=== PATIENT | male | born 1975 | race Hispanic/Latino ===

== ENCOUNTER 2018-10-31 21:29 | Emergency (ER) | payer OTHER ==
[~2018-10-31 21:29] MED LIST: ISOVUE-370 76%-LOCM 1 ML ONE
[2018-10-31] MEDS ORDERED: Ondansetron PF 4 MG/2 ML Vial ONE (22:39)
[2018-10-31] MEDS ORDERED: Adacel (T-DAP) 0.5 ML SYRINGE ONE (22:53)
--- NOTE | 2018-10-31 23:27 | CT ---
CT arteriogram neck with IV contrast and 3-D imaging HISTORY: Neck injury. FINDINGS: There is bovine origin of the great vessels at the aortic arch. All vessels are patent. Goo d flow into each carotid and vertebral system. No filling defects or evidence of dissection. Mild calcification within the intracranial carotid siphons bilaterally. Mucosal thickening in the left eth moid air cells and left maxillary sinus. IMPRESSION: No acute vascular abnormalities are demonstrated. No acute traumatic injury.
[2018-10-31 23:28] LABS: Hemoglobin 13.1 g/dL (14.0-18.0); Mean Corpuscular HGB CONC 33.4 g/dL (32.0-36.0); Mean Corpuscular Hemoglobin 27.1 pg (27.0-31.0); RBC Distribution Width 15.4 % (11.5-14.5); Red Blood Cell (RBC) Count 4.85 mill/uL (4.70-6.10); White Blood Cell (WBC) Count 9.5 thou/uL (4.8-10.8)
--- NOTE | 2018-10-31 23:28 | CT ---
CT head noncontrast HISTORY: Fall. Head injury. FINDINGS: There is no evidence of acute intracranial hemorrhage or infarct. The ventricles appear nor mal in size, shape and position. There is no mass effect or shift of midline structures. Soft tissue swelling anterior to the left globe. No evidence of orbital hematoma. Mucous retention cyst in the left maxillary sinus. IMPRESSION: No acute intracranial abnormalities are demonstrated.
[2018-10-31 23:44] LABS: ALT (SGPT) 21 U/L (8-55); AST (SGOT) 21 U/L (5-34); Albumin 4.1 g/dL (3.5-5.0); Alkaline Phosphatase 79 U/L (40-150); Anion Gap 11 mmol/L (10-20); BUN (Urea Nitrogen) 9 mg/dL (8.9-20.6); Bilirubin, Total 0.5 mg/dL (0.2-1.2); Calc. Creatinine Clearance 0 mL/min (70-130); Carbon Dioxide 22 mmol/L (22-29); Chloride 106 mmol/L (98-107); Estimated GFR-MDRD Greater than 90; Globulin 3.6 g/dL (2.4-3.5); Glucose 124 mg/dL (70-105); Potassium 3.4 mmol/L (3.5-5.1); Protein, Total 7.7 g/dL (6.0-8.3); Sodium 136 mmol/L (136-145)
[2018-10-31 23:46] LABS: #Lymphocytes 1.3 thou/uL (1.20-3.40); #Monocytes 0.7 thou/uL (0.11-0.59); #Neutrophils 7.4 thou/uL (1.40-6.50); %Basophils 0.1 % (0.0-1.0); %Eosinophils 0.4 % (0.0-10.0); %Lymphocytes 13.2 % (21.0-51.0); %Monocytes 7.5 % (0.0-10.0); %Neutrophils 78.7 % (42.0-75.0); Mean Platelet Volume 11.1 fL (7.4-10.4); Platelet Count 81 thou/uL (130-400); Platelet Morphology Comment Appears Decreased
--- NOTE | 2018-10-31 23:57 | CT ---
CT face noncontrast HISTORY: Facial injury. FINDINGS: The mandible, globes, and zygomatic arches are intact. Left periorbital preseptal swelling. Mucous retention cyst in the left maxillary sinus. Mild mucosal thickening of the left ethmoid air cells. Subtle cortical irregularity involving the nasal bones with leftward deviation. No overlying soft tis jamari swelling or fluid layering within the maxillary sinuses. IMPRESSION: Left periorbital soft tissue swelling. Mild cortical irregularity of the nasal bones. Favored to represent an old injury.
== END 2018-11-01 03:09 | disposition short-term general hospital (02) ==
LOC: EEVIPCON 21:29 → ERS 21:29
DX: S01.112A Laceration without foreign body of left eyelid and periocular area, initial encounter (principal); W17.89XA Other fall from one level to another, initial encounter
CPT/HCPCS: 36415; 70450; 70486; 70498; 80053; 85025; 90471; 90715; 96361; 96374; J2405; Q9966

== ENCOUNTER 2018-11-01 19:04 | Emergency (ER) | payer OTHER | END 2018-11-01 20:34 | LOC: EEVIPCON 19:04 → ERS 19:04 | DX: S01.112A Laceration without foreign body of left eyelid and periocular area, initial encounter (principal); W18.30XA Fall on same level, unspecified, initial encounter | CPT/HCPCS: 99283 ==